=== PATIENT | male | born 1980 | race Caucasian/White ===

== ENCOUNTER 2016-06-12 21:46 | Emergency (ER) | payer OTHER ==
[2016-06-12] MEDS ORDERED: ASPIRIN 81 MG TABLET, CHEWABLE PO ONE (22:23)
[2016-06-12 22:50] LABS: ABSOLUTE EOSINOPHILS # (AUTO) 0.2 10^3/uL (0.0-0.6); ABSOLUTE LYMPHOCYTES (AUTO) 1.8 10^3/uL (0.5-4.7); ABSOLUTE NEUT (AUTO) 9.4 10^3/uL (1.7-8.2); BASOPHILS % (AUTO) 0.3 % (0-2); EOSINOPHILS % (AUTO) 1.6 % (0-6); HEMATOCRIT 45.9 % (37.9-51.0); HEMOGLOBIN 15.6 g/dL (13.5-17.0); HGB HCT DIFFERENCE 0.9; LYMPHOCYTES % (AUTO) 14.2 % (13-45); MEAN CORPUSCULAR HEMOGLOBIN 30.2 pg (27.0-33.4); MEAN CORPUSCULAR VOLUME 89 fl (80-97); MONOCYTES % (AUTO) 8.3 % (3-13); RED BLOOD COUNT 5.16 10^6/uL (4.35-5.55); RED CELL DISTRIBUTION WIDTH 13.6 % (11.5-14.0); SEGMENTED NEUTROPHILS % (AUTO) 75.6 % (42-78); WHITE BLOOD COUNT 12.4 10^3/uL (4.0-10.5)
[2016-06-12 23:08] LABS: ALANINE AMINOTRANSFERASE 30 U/L (21-72); ALBUMIN 4.8 g/dL (3.5-5.0); ALKALINE PHOSPHATASE 53 U/L (38-126); ANION GAP 11 (5-19); ASPARTATE AMINO TRANSFERASE 21 U/L (17-59); BILIRUBIN,DIRECT 0.2 mg/dL (0.0-0.4); BILIRUBIN,TOTAL 0.7 mg/dL (0.2-1.3); BLOOD UREA NITROGEN 15 mg/dL (7-20); CALCIUM 10.5 mg/dL (8.4-10.2); CARBON DIOXIDE 33 mmol/L (22-30); CHLORIDE 100 mmol/L (98-107); CREATINE KINASE 49 U/L (55-170); CREATININE RESULT 0.89 mg/dL (0.52-1.25); GLUCOSE 114 mg/dL (75-110); SODIUM 143.7 mmol/L (137-145); TOTAL PROTEIN 7.7 g/dL (6.3-8.2)
[2016-06-12] MEDS ORDERED: IPRATROPIUM/ALBUTEROL 0.5-2.5 MG/3 ML AMPUL NEB ONE (23:17)
--- NOTE | 2016-06-12 23:19 | ER Document Report ---
ED General - General Chief Complaint: Chest Pain Stated Complaint: JAW PAIN Time seen by provider: 23:15 Notes: Patient is a 35 year old male that comes to the ED for chief complaint of 3 days of worsening cough, nasal and chest congestion, he states that he's had a pinching sensation over the front of his chest slightly worse on the left side since yesterday evening, he also feels pain in his left jaw area. He denies shortness of breath although admits he has had some near wheezing. He denies fever. He smokes daily, denies any other medical history, denies family history of [place]. TRAVEL OUTSIDE OF THE [place] IN LAST 30 DAYS: No Past Medical History - General Information source: Patient - Social History Smoking Status: Current Every Day Smoker Chew tobacco use (# tins/day): No Smoking Education Provided: Yes - <3 min Frequency of alcohol use: Social Drug Abuse: None Lives with: Family Family History: Reviewed & Not Pertinent Patient has suicidal ideation: No Patient has homicidal ideation: No - Medical History Medical History: Negative Renal/ Medical History: Denies: Hx Peritoneal Dialysis Surgical Hx: Negative - Immunizations Hx Diphtheria, Pertussis, Tetanus Vaccination: Yes Review of Systems - Review of Systems Constitutional: No symptoms reported EENT: See HPI Cardiovascular: See HPI Respiratory: See HPI Gastrointestinal: No symptoms reported Genitourinary: No symptoms reported Male Genitourinary: No symptoms reported Musculoskeletal: No symptoms reported Skin: No symptoms reported Hematologic/Lymphatic: No symptoms reported Neurological/Psychological: No symptoms reported Physical Exam - Vital signs Vitals: Temp Pulse Resp BP Pulse Ox 97.8 F 89 16 136/75 H 97 06/12/16 21:55 06/12/16 21:55 06/12/16 21:55 06/12/16 21:55 06/12/16 21:55 Interpretation: Normal - General General appearance: Appears well, Alert In distress: None - HEENT Head: Normocephalic, Atraumatic Eyes: Normal Pupils: PERRL - Respiratory Respiratory status: No respiratory distress. No: Labored, Tachypnea Chest status: Tender - Mild generalized left anterior chest wall tenderness Breath sounds: Nonproductive cough - Occasional, Wheezing - Expiratory wheezes bilaterally Chest palpation: Normal - Cardiovascular Rhythm: Regular. No: Tachycardia Heart sounds: Normal auscultation, S1 appreciated, S2 appreciated Murmur: No - Abdominal Inspection: Normal Distension: No distension Bowel sounds: Normal Tenderness: Nontender. No: Tender, Guarding Organomegaly: No organomegaly - Back Back: Normal, Nontender - Extremities General upper extremity: Normal inspection, Nontender, Normal color, Normal ROM , Normal temperature General lower extremity: Normal inspection, Nontender, Normal color, Normal ROM , Normal temperature, Normal weight bearing. No: Maryuri's sign - Neurological Neuro grossly intact: Yes Cognition: Normal Orientation: AAOx4 Emily Coma Scale Eye Opening: Spontaneous [place] Coma Scale Verbal: Oriented Emily Coma Scale Motor: Obeys Commands [place] Coma Scale Total: 15 Speech: Normal Motor strength normal: LUE, RUE, LLE, RLE Sensory: Normal - Psychological Associated symptoms: Normal affect, Normal mood - Skin Skin Temperature: Warm Skin Moisture: Dry Skin Color: Normal Course - Re-evaluation Re-evalutation: Wheezing resolved on reexamination. Patient with mild chest wall tenderness, otherwise very well-appearing. No tachypnea, no hypoxia, no respiratory distress. EKG shows no acute findings, questionable Q waves lateral leads. No ST segment or T-wave inversions in consecutive leads, sinus rhythm, no tachycardia. Chest x-ray with inflammation in the bronchus, no consolidations, CBC shows some leukocytosis, clinical picture is consistent with either pneumonia or upper respiratory infection with sinus congestion. Cardiac enzymes negative despite days of symptoms. Results were discussed with patient, patient states that he plans to follow-up closely with primary care, patient will be placed on prednisone, doxycycline, discussed follow-up and return precautions, patient states understanding and agreement. - Vital Signs Vital signs: Temp Pulse Resp BP Pulse Ox 97.8 F 89 16 138/81 H 98 06/12/16 21:55 06/12/16 21:55 06/13/16 00:01 06/13/16 00:00 06/13/16 00:01 - Laboratory Result Diagrams: 06/12/16 22:23 06/12/16 22:23 Laboratory results interpreted by me: 06/12/16 06/12/16 22:23 22:23 WBC 12.4 H Absolute Neutrophils 9.4 H Carbon Dioxide 33 H Glucose 114 H Calcium 10.5 H Creatine Kinase 49 L Discharge - Discharge Clinical Impression: Cough, Wheezing Upper respiratory infection Qualifiers: URI type: unspecified URI Qualified Code(s): J06.9 - Acute upper respiratory infection, unspecified Chest pain Qualifiers: Chest pain type: unspecified Qualified Code(s): R07.9 - Chest pain, unspecified Condition: Stable Disposition: HOME, SELF-CARE Additional Instructions: Workup indicates a bronchitis and sinus infection, take the doxycycline antibiotic as directed. Take prednisone as directed, stop smoking. Follow-up with primary care for additional workup and management. Return to the emergency department for any concerning or worsening symptoms. Prescriptions: Doxycycline Hyclate 100 mg PO BID #14 capsule Prednisone [Deltasone 10 mg Tablet] 10 mg PO ASDIR PRN #21 tablet PRN Reason: Forms: Return to Work
[2016-06-12 23:21] LABS: CREATINE KINASE MB 0.54 ng/mL (<4.55)
[2016-06-12 23:22] LABS: TROPONIN I < 0.012 ng/mL
[2016-06-12] MEDS ORDERED: DOXYCYCLINE HYCLATE 100 MG TABLET PO ONE (23:57)
[2016-06-13 00:28] VITALS: BP 138/81
--- NOTE | 2016-06-13 08:26 | EKG REPORT ---
SEVERITY:- NORMAL ECG - SINUS RHYTHM : Confirmed by: Gregory Pfeiffer MD 13-Jun-2016 08:25:35
== END 2016-06-13 00:28 | disposition home or self-care (01) ==
LOC: ER 21:46
DX: J06.9 Acute upper respiratory infection, unspecified (principal); R07.9 Chest pain, unspecified; R06.2 Wheezing; R68.84 Jaw pain; F17.200 Nicotine dependence, unspecified, uncomplicated
CPT/HCPCS: 93005; 94640; 99284; 36415; 82553; 82550; 85025; 80053; 84484; 71010; 93010; J7620

== ENCOUNTER 2017-09-12 22:32 | Emergency (ER) | payer OTHER ==
[2017-09-12 22:38] VITALS: BP 136/83
--- NOTE | 2017-09-12 23:07 | ER Document Report ---
ED Hand/Wrist Injury - General Mode of Arrival: Ambulatory Information source: Patient TRAVEL OUTSIDE OF THE [place] IN LAST 30 DAYS: No - General Chief Complaint: Finger Injury Stated Complaint: FINGER INJURY Time Seen by Provider: 09/12/17 23:01 Notes: Patient is a 36 year old male with no significant medical history presents to the emergency department complaining of a laceration to the left 3rd digit on the palmar aspect. Patient states he accidentally slammed his finger in a steel door and part of his fingertip fell off. Patient presented with the tip of his finger in a bag of ice. (LUH SOUZA) - Related Data Allergies/Adverse Reactions: No Known Allergies Allergy (Unverified 09/12/17 22:58) Past Medical History - General Information source: Patient - Social History Smoking Status: Current Every Day Smoker Cigarette use (# per day): Yes Chew tobacco use (# tins/day): No Smoking Education Provided: No Frequency of alcohol use: Social Occupation: Dietary Manager at [employer] Family History: Reviewed & Not Pertinent Patient has suicidal ideation: No Patient has homicidal ideation: No - Immunizations Hx Diphtheria, Pertussis, Tetanus Vaccination: Yes Review of Systems - Review of Systems Constitutional: No symptoms reported EENT: No symptoms reported Cardiovascular: No symptoms reported Respiratory: No symptoms reported Gastrointestinal: No symptoms reported Genitourinary: No symptoms reported Male Genitourinary: No symptoms reported Musculoskeletal: See HPI Skin: No symptoms reported Hematologic/Lymphatic: No symptoms reported Neurological/Psychological: No symptoms reported -: Yes All other systems reviewed and negative Physical Exam - General General appearance: Alert, Anxious In distress: None - HEENT Head: Normocephalic, Atraumatic Eyes: Normal Conjunctiva: Normal Extraocular movements intact: Yes Pupils: PERRL Neck: Normal - Respiratory Respiratory status: No respiratory distress - Extremities General upper extremity: Normal ROM General lower extremity: Normal ROM Hand: Laceration - 3rd digit of left hand has an 1.2cm x1.2cm evulsion on the palmar aspect of the fingertip. Nail intact. - Neurological Neuro grossly intact: Yes Cognition: Normal Orientation: AAOx4 [place] Coma Scale Eye Opening: Spontaneous [place] Coma Scale Verbal: Oriented [place] Coma Scale Motor: Obeys Commands [place] Coma Scale Total: 15 Speech: Normal - Psychological Associated symptoms: Anxious - Skin Skin Temperature: Warm Skin Moisture: Dry Skin Color: Normal - Vital signs Vitals: Temp Pulse Resp BP Pulse Ox 98.4 F 93 16 136/83 H 98 09/12/17 22:37 09/12/17 22:37 09/12/17 22:37 09/12/17 22:37 09/12/17 22:37 Course - Re-evaluation Re-evalutation: 09/13/17 05:58 PROCEEDURE: The left hand skin was prepped with Shur-Clens. The third finger had a metacarpal block done with 1% lidocaine, 8 mL's total. After adequate anesthesia, all the fingers were scrubbed with saline soaked gauze. The fingertip wound was copiously irrigated with normal saline. There was some of the tuft noted in the middle of the wound. The fingernail is intact, the nailbed is intact, and some of the tip of the finger was still present under the nail on the radial side. The avulsed piece of the volar tip measured approximately 1.5 x 1.5 cm. The retained bits of tuft bone were debrided from the avulsed tissue. The fat was debrided from the avulsed tissue. Some of the fat in the wound of the finger was debrided. The fingertip flap was repositioned anatomically, and sutured down using 12 simple 5-0 nylon sutures. Several holes were placed in the avulsed flap using an 18-gauge needle. The tip was then dressed with Xeroform dressing, 2 x 2's over the reattached flap to provide gentle pressure and the finger was wrapped in sterile gauze. ( GALI FERNANDEZ) - Vital Signs Vital signs: Temp Pulse Resp BP Pulse Ox 98.4 F 93 16 136/83 H 98 09/12/17 22:37 09/12/17 22:37 09/12/17 22:37 09/12/17 22:37 09/12/17 22:37 Discharge - Discharge Clinical Impression: Open fracture of tuft of distal phalanx of finger Traumatic amputation of fingertip Qualifiers: Encounter type: initial encounter Qualified Code(s): S68.129A - Partial traumatic metacarpophalangeal amputation of unspecified finger, initial encounter Condition: Stable Disposition: HOME, SELF-CARE Additional Instructions: Keep the dressing clean and dry. Elevate your hand as much as possible. Take medication as prescribed. Call Dr. Mack in the morning for an appointment today to check your fingertip. RETURN TO THE EMERGENCY ROOM IF ANY NEW OR WORSENING SYMPTOMS. Prescriptions: Cephalexin Monohydrate [Keflex 500 mg Capsule] 500 mg PO QID #28 capsule Oxycodone HCl/Acetaminophen [Percocet 5-325 mg Tablet] 1 tab PO ASDIR PRN #15 tablet PRN Reason: Referrals: WAN MACK MD [ACTIVE STAFF] - 09/13/17 (Call at 8:00 in the morning to schedule an appoint to be seen today.) Scribe Attestation: 09/13/17 00:13 I personally performed the services described in the documentation, reviewed and edited the documentation which was dictated to the scribe in my presence, and it accurately records my words and actions. (GALI FERNANDEZ) Scribe Documentation - Scribe Written by Scribe:: Keanu Poon, 09/12/2017 23:46 acting as scribe for :: Petrona
[2017-09-12] MEDS ORDERED: OXYCODONE-ACETAMINOPHEN 5-325 MG TABLET PO ONE (23:19)
[2017-09-12] MEDS ORDERED: LORAZEPAM 1 MG TABLET PO ONE (23:19)
[2017-09-12] MEDS ORDERED: LIDOCAINE 1% INJ-PF (10 MG/ML) 30 ML SDV INJ ONE (23:20)
[2017-09-12] MEDS ORDERED: CEPHALEXIN 500 MG CAPSULE PO ONE (23:20)
--- NOTE | 2017-09-12 23:26 | RADIOLOGY REPORT (SQ) ---
EXAM DESCRIPTION: XR HAND 3 OR MORE VIEWS COMPLETED DATE/TME: 09/12/2017 22:35 CLINICAL HISTORY: 36 years, Male, pain COMPARISON: None. NUMBER OF VIEWS: 3 LIMITATIONS: None. FINDINGS: Cortical fracture/amputation at the left third distal phalangeal tuft. 3.3 cm likely benign lytic lesion of the left third proximal phalanx may indicate an enchondroma. IMPRESSION: Open tuft fracture of the left third digit. Comment: Consider antibiotic therapy.
[2017-09-12] MEDS ORDERED: DIPH/PERTUSS(ACELL)/TETANUS VAC/PF 0.5 ML SYR (>=10YO) IM ONE (23:41)
[2017-09-13] MEDS ORDERED: HYDROCODONE/ACETAMINOPHEN 5-325 MG (6 TAB/ER DISP) PO PRN (01:39)
== END 2017-09-13 01:58 | disposition home or self-care (01) ==
LOC: ER 22:32
PROC: 0JQK0ZZ Repair Left Hand Subcutaneous Tissue and Fascia, Open Approach (ICD-10-PCS; principal; 2017-09-12)
DX: S68.123A Partial traumatic metacarpophalangeal amputation of left middle finger, initial encounter (principal); W23.0XXA Caught, crushed, jammed, or pinched between moving objects, initial encounter; F17.210 Nicotine dependence, cigarettes, uncomplicated
CPT/HCPCS: 99283; 90471; 73130; 90715; 13132; J3490

== ENCOUNTER → 2017-10-14 | Outpatient (CLI) | payer OTHER ==
--- NOTE | 2017-10-14 13:25 | RADIOLOGY REPORT (SQ) ---
EXAM DESCRIPTION: CHEST PA/LATERAL COMPLETED DATE/TIME: 10/14/2017 1:17 pm REASON FOR STUDY: PNEUMOTHORAX, UNSPECIFIED COMPARISON: 06/12/2016 None. EXAM PARAMETERS: NUMBER OF VIEWS: two views TECHNIQUE: Digital Frontal and Lateral radiographic views of the chest acquired. RADIATION DOSE: NA LIMITATIONS: none FINDINGS: LUNGS AND PLEURA: No opacities, masses or pneumothorax. No pleural effusion. MEDIASTINUM AND HILAR STRUCTURES: No masses or contour abnormalities. HEART AND VASCULAR STRUCTURES: Heart normal size. No evidence for failure. BONES: No acute findings. HARDWARE: None in the chest. OTHER: No other significant finding. IMPRESSION: 1 No significant interval changes since the prior examination dated 06/12/2016. No acute pulmonary findings. TECHNICAL DOCUMENTATION: JOB ID: [id number] [employer]- All Rights Reserved Reading location - IP/workstation name: [email or web address]
== END ==
LOC: WC 13:07
PROVIDERS: ATTEND Nurse Practitioner
DX: J93.9 Pneumothorax, unspecified (principal)
CPT/HCPCS: 71046